=== PATIENT | female | born 1960 | race Caucasian/White ===

== ENCOUNTER → 2019-06-17 | Outpatient (CLI) | payer BC ==
[~2019-06-17] MED LIST: ASPIRIN81 MG PO; EFAVIRENZ PO; HYDROCODON-ACE1 EAC9 PO; LYRICA PO; METOPROLOL TART25 MG PO; NORCO 10-325 T1 EACH PO; PHENERGAN SUPP25 MG PR; SEROQUEL400 MG PEG; TRAZODONE HCL50 MG PO; VALIUM10 MG PO; Z.0.AMBIEN10 MG PO; Z.0.ATIVAN1 MG; Z.0.NEXIUM40 MG PO; Z.0.VICODIN 5-5001 E; ZOFRAN ODT4 MG SL; ZOFRAN PO; [UNRECOGNIZED DRUG - OTHER] PO; [UNRECOGNIZED DRUG - REMARK]; [UNRECOGNIZED DRUG - REMARK] PO
--- NOTE | 2019-06-17 15:51 | Diagnostic Imaging Report ---
Exam: Bone mineral density study. History: Osteopenia. Comparison: None Discussion: Evaluation of the left hip and lumbar spine was performed utilizing DEXA Hologic bone densitometer. The study is technically adequate. Surgical hardware is seen at the lower lumbar spine. Left hip total bone mineral density: 0.567gm/cm2, T-score is -3.1, Z-score is -2.1. Left hip femoral neck bone mineral density: 0.507gm/cm2, T-score is -3.1, Z-score is -1.8. Lumbar spine total bone mineral density:0.655gm/cm2, T-score is-3.3, Z-score is -1.9. Impression: 1. Osteoporosis of the left hip, fracture risk is high 2. Osteoporosis of the lumbar spine, fracture risk is high Least significant change (LSC) for bone mineral density as provided by marketing communications coordinator is 0.023 g/cm2 for lumbar spine and 0.027 g/cm2 for total hip. 10 -year fracture risk per WHO Fracture Risk Assessment Tool (FRAX) for: Not reported because some T-scores at or below -2.5. Prior hip or vertebral fracture. Treated for osteoporosis. The patient's fracture risk is compared to an age-matched control. Medical evaluation for secondary causes of low bone bone mineral density may be appropriate. Correlate clinically for the necessity and timing of the next bone mineral density study. Signed by: Dr. Manolo Qureshi M.D. on 06/17/2019 3:47 PM
== END ==
LOC: DX 15:05
PROVIDERS: ATTEND Internal Medicine Cardiovascular Disease
DX: B20 Human immunodeficiency virus [HIV] disease (principal); M81.0 Age-related osteoporosis without current pathological fracture
CPT/HCPCS: 77080